=== PATIENT | female | born 1995 | race Caucasian/White ===

== ENCOUNTER 2016-11-21 22:35 | Emergency (ER) | payer BC, OTHER ==
[2016-11-21 22:42] VITALS: BP 133/89; PULSE 95; RESP 16; TEMP 98.1; O2SAT 100
[2016-11-21] MEDS ORDERED: HYDROCODONE/APAP 5/325 TAB PO ONE (22:48)
[2016-11-21] MEDS ORDERED: IBUPROFEN 200 MG TAB PO ONE (22:48)
--- NOTE | 2016-11-21 23:15 | DX ---
Left wrist, 3 views at 2250 hours History: Trauma, pain. Fall. Findings: Oblique impacted slightly comminuted distal left radial metaphyseal fracture with slight do rsal angulation approximately 5 degrees. Suspect nondisplaced ulnar styloid fracture. Scaphoid and carpal bones appear intact without additional fractures. Metacarpal bases also appear in tact. Impression: 1. Oblique slightly comminuted distal left radius metaphyseal fracture. 2. Nondisplaced ulnar styloid fracture.
--- NOTE | 2016-11-21 23:43 | EDPHY ---
H & P Stated Complaint: fell while ice skating, L wrist injury Time Seen by Provider: 11/21/16 22:44 HPI/ROS: HPI: The patient presents with a fall onto her outstretched arms just prior to arrival while ice skating, sustaining left wrist pain which is constant, severe , aching in nature without radiation. She denies any numbness or tingling. She has no prior history of left wrist injury. REVIEW OF SYSTEMS Constitutional: No fever, no chills. Musculoskeletal: No back pain. Skin: No rashes. Neurological: No headache. PMHx: Healthy TRAUMA PHYSICAL General Appearance: Alert, no distress Head: Atraumatic Eyes: Pupils equal, round, reactive Neck: trachea midline Respiratory: breathing comfortably Skin: No lacerations, No abrasion Back: No midline T/L/S pain Extremities: left wrist with obvious deformity and swelling, 2+ radial pulses, sensation intact throughout hand with full strength Neurological: A&Ox3, GCS=15,normal motor function with 5/5 strength in all 4 extremities, normal sensory exam Source: Patient Exam Limitations: No limitations - Personal History LMP (Females 10-55): 15-21 Days Ago Current Tetanus/Diphtheria Vaccine: Yes - Medical/Surgical History Hx Asthma: No Hx Chronic Respiratory Disease: No Hx Diabetes: No Hx Cardiac Disease: No Hx Renal Disease: No Hx Cirrhosis: No Hx Alcoholism: No Hx HIV/AIDS: No Hx Splenectomy or Spleen Trauma: No Other PMH: PSHx: denies. PMHx: denies - Social History Smoking Status: Never smoked Constitutional: Initial Vital Signs Temperature (C) 36.7 C 11/21/16 22:37 Heart Rate 95 11/21/16 22:37 Respiratory Rate 16 11/21/16 22:37 Blood Pressure 133/89 H 11/21/16 22:37 O2 Sat (%) 100 11/21/16 22:37 O2 Delivery Mode Room Air Allergies/Adverse Reactions: No Known Allergies Allergy (Unverified 11/21/16 22:37) Home Medications: Medication Instructions Recorded Hydrocodone/APAP 5/325 [Richardson 1 - 2 tab PO Q6H PRN #15 tab 11/21/16 5/325 (*)] Medical Decision Making - Diagnostics Imaging: Left wrist three views demonstrates distal radius fracture which is comminuted with mild displacement, ulnar styloid fracture present, interpreted by Dr. Carter, I viewed the images independently. Procedures: SPLINT Procedure: Splint placement. A ortho glass sugar-tong splint was applied to the left wrist by the tech. After application of the splint I returned and re-examined the patient. The splint was adequately immobilizing the joint and distal to the splint the patient's circulation and sensation was intact. Differential Diagnosis: This is a 21-year-old female who had a fall onto her outstretched arm while ice skating, now complaining of left wrist pain. Differential diagnosis includes wrist sprain, wrist fracture, wrist dislocation. X-rays performed showing distal radius fracture as well as ulnar styloid fracture. Given minimal amount of displacement, I do not think she would benefit from close reduction in the emergency room. She will be placed in a sugar-tong splint given a sling and referred to Orthopedics. She is in agreement with this plan. - Data Points Medications Given: Discontinued Medications Acetaminophen/Hydrocodone Bitart (Richardson 5/325) 2 tab PO EDNOW ONE Stop: 11/21/16 22:49 Last Admin: 11/21/16 23:00 Dose: 2 tab Acetaminophen/Hydrocodone Bitart (Richardson 5/325mg Prepack#6) 1 btl TAKEHOME EDNOW ONE Stop: 11/22/16 00:02 Last Admin: 11/22/16 00:01 Dose: 1 btl Ibuprofen (Motrin) 400 mg PO EDNOW ONE Stop: 11/21/16 22:49 Last Admin: 11/21/16 23:01 Dose: 400 mg Departure - Departure Disposition: Home, Routine, Self-Care Clinical Impression: Distal radius fracture, left, Fracture of ulnar styloid Condition: Good Instructions: Wrist Fracture in Adults (ED), Splint Care (ED) Additional Instructions: Please use rest, ice, elevation and the pain medication for your pain. Keep the splint on at all times. You should call the you orthopedist on Thursday to schedule an appointment next week. Return to the emergency room if your worse in any way. Referrals: Jhonny Valencia MD [Medical Doctor] - As per Instructions Stand Alone Forms: School Excuse Prescriptions: Hydrocodone/APAP 5/325 [Richardson 5/325 (*)] 1 - 2 tab PO Q6H PRN #15 tab PRN Reason: Pain, Breakthrough
[2016-11-22] MEDS ORDERED: HYDROCOD/APAP 5/325 PREPACK#6 BTL TAKEHOME ONE ×2 (00:01)
== END 2016-11-22 00:13 | disposition home or self-care (01) ==
DX: S52.502A Unspecified fracture of the lower end of left radius, initial encounter for closed fracture (principal); S52.612A Displaced fracture of left ulna styloid process, initial encounter for closed fracture; V00.211A Fall from ice-skates, initial encounter; Y92.89 Other specified places as the place of occurrence of the external cause; Y93.21 Activity, ice skating
CPT/HCPCS: A4565